=== PATIENT | female | born 1975 | race Caucasian/White ===

== ENCOUNTER 2017-09-17 16:41 | Emergency (ER) | payer OTHER ==
[2017-09-17 16:51] VITALS: BP 127/94; PULSE 77; RESP 20; TEMP 98.1; O2SAT 100
[2017-09-17] MEDS ORDERED: ATROPINE 0.4 MG/ML SOL IV ONE (16:52)
[2017-09-17] MEDS ORDERED: ATROPINE 0.1 MG/ML SOL ONE (16:59)
[2017-09-17 17:11] LABS: BASOPHILS % (AUTO) 0 % (0-3); EOSINOPHILS % (AUTO) 0 % (0-9); HEMATOCRIT 41 % (35-47); MEAN CORPUSCULAR HGB CONC 35.5 gm/dl (32.0-36.0); MEAN CORPUSCULAR VOLUME 93 fL (81-99); MONOCYTES % (AUTO) 6.2 % (0-12); NEUTROPHILS % (AUTO) 85.1 % (37-80)
[2017-09-17] MEDS ORDERED: HYDROMORPHONE HCL 2 MG/ML SOL ONE (17:12)
[2017-09-17] MEDS ORDERED: HYDROMORPHONE HCL 2 MG/ML SOL IV ONE (17:15)
[2017-09-17 17:22] LABS: ALBUMIN 3.8 gm/dl (3.4-5.0); CALCIUM 9.1 mg/dl (8.5-10.1); POTASSIUM 4.4 mMol/L (3.5-5.1)
[2017-09-17 18:29] LABS: APPEARANCE,URINE Clear; BILIRUBIN,URINE NEGATIVE (NEGATIVE); COLOR,URINE Yellow; GLUCOSE, URINE (UA) NEGATIVE (NEGATIVE); KETONES,URINE 2+ (NEGATIVE); LEUKOCYTE ESTERASE ,URINE NEGATIVE (NEGATIVE); NITRATE,URINE NEGATIVE (NEGATIVE); OCCULT BLOOD,URINE TRACE INTACT (NEG-TRACE); UROBILINOGEN,URINE 0.2 (0.2-1.0 EU)
[2017-09-17 18:31] LABS: RBC,URINE 0-2 (0-3AV/HPF); WBC,URINE 0-1 (0-5AV/HPF)
[2017-09-17] MEDS ORDERED: KETOROLAC TROMETHAMINE 30 MG/ML SOL IV ONE (18:42)
[2017-09-17] MEDS ORDERED: KETOROLAC TROMETHAMINE 30 MG/ML SOL ONE (18:43)
== END 2017-09-17 18:58 | disposition home or self-care (01) | DRG 392 ==
LOC: ED 16:41
DX: A09 Infectious gastroenteritis and colitis, unspecified (principal)
CPT/HCPCS: 74177; 80053; 81001; 85025; 99283; J0461; J1170; J1885; Q9967